=== PATIENT | male | born 1995 | race Caucasian/White ===

== ENCOUNTER 2021-10-30 04:32 | Inpatient (IN) | payer BC, MEDICAID ==
[~2021-10-30] VITALS: Ht 15.2 cm; Wt 109.1 kg
[2021-10-30] MEDS ORDERED: LATUDA40 MG PO (05:31)
[2021-10-30 05:54] LABS: ALBUMIN 3.4 gm/dL (3.5-5.0); CALCIUM 8.4 mg/dL (8.4-10.2); CREATININE, serum 0.73 mg/dL (0.72-1.25); POTASSIUM 3.2 mmol/L (3.5-4.5); TOTAL PROTEIN 6.5 gm/dL (6.2-8.1)
[2021-10-30 06:07] LABS: BILIRUBIN,TOTAL 1.8 mg/dL (0.2-1.2)
[2021-10-30 06:33] LABS: BASO # 0.1 K/mm3 (0.0-0.2); BASO % 0.8 % (0.0-2.0); EOS # 0.1 K/mm3 (0.0-0.7); EOS % 1.3 % (0.0-4.0); GRAN # 5.5 K/mm3 (1.4-6.5); GRAN % 73.5 % (42.2-75.2); HEMATOCRIT 38.7 % (42.0-52.0); HEMOGLOBIN 14.4 g/dl (13.5-18.0); LYMPH # 1.2 K/mm3 (1.2-3.4); LYMPH % 16.6 % (20.0-51.0); MEAN CELL VOLUME 90 fl (80.0-100.0); MEAN CORPUSCULAR HEMOGLOBIN 33 pg (27-31); MEAN CORPUSCULAR HGB CONC 37 g/dl (33.0-37.0); MEAN PLATELET VOLUME 9.6 fl (7.4-10.4); MONO # 0.6 K/mm3 (0.1-0.6); MONO % 7.5 % (1.7-9.3); PLATELET COUNT 263 K/mm3 (130-400); RED BLOOD COUNT 4.32 M/mm3 (4.20-5.60); REDCELL DISTRIBUTION WIDTH-CV 12.2 % (11.5-14.5)
[2021-10-30 11:49] VITALS: BP 134/86; PULSE 58; TEMP 97.5
[2021-10-30] MEDS ORDERED: ATARAX 25MG25 MG/TAB PO (11:51)
[2021-10-30 13:01] LABS: INR 1.2 (0.8-3.0); PROTHROMBIN TIME 13.4 SECONDS (9.7-12.8)
[2021-10-30 15:41] VITALS: BP 138/90; PULSE 94; TEMP 97.8
[2021-10-30 18:12] VITALS: BP 141/88; PULSE 85; TEMP 98.7
[2021-10-30 20:07] VITALS: BP 142/100; PULSE 57; TEMP 97.9
[2021-10-30 21:17] LABS: COLLECTION METHOD CLEAN CATCH
[2021-10-30 21:24] LABS: MUCOUS Present (NOT PRESENT); PH 6 (5-8); URINE APPEARANCE Hazy (CLEAR/HAZY); URINE BACTERIA None Seen /hpf (NONE SEEN); URINE BILIRUBIN Positive (NEGATIVE); URINE BLOOD Negative (NEGATIVE); URINE COLOR Amber (YELLOW); URINE GLUCOSE Negative (NEGATIVE); URINE KETONE Trace (NEGATIVE); URINE LEUKOCYTE ESTERASE Negative (NEGATIVE); URINE NITRATE Negative (NEGATIVE); URINE PROTEIN(semi-quant) 1+ (NEGATIVE); URINE RBC 0-2 /hpf (0-2)
[2021-10-30 21:45] LABS: TRICYCLIC ANTIDEPRESS URINE NEGATIVE
[2021-10-30 22:08] VITALS: BP 150/110; PULSE 90; TEMP 98.6
--- NOTE | 2021-10-30 23:34 | NUR ---
Patient assessed around 2039. Alert and oriented, and able to make needs known. Reports continuous pain to right upper quadrant of abdomen. Continues to recieve PRN Dilaudid 1 mg every 3 hours PRN for pain. Received around 2129. Patient continues on Detox protocol with Librium. Scored 4 around 1999 and 5 around 2199, given medication per orders. Peripheral IV to left forearm with IV fluids running per orders. Denies SOB and dyspnea. LS CTA. HRR. BSAx4. Complained of nausea and given PRN Zofran. No edema. Did report he was a smokers and felt like he was going through nicotene withdraw. Called [facility], and new order for Nicotiene patch recieved and put on per orders. Patient states that he wants to quit drinking. Had recently moved here from [place] and does not have [employer] insurance, and does not have a PCP. Asked if he would like social work msw to come talk to him about options, and stated he did. Order placed as requested. Voices no further questions, needs, or concerns at this time. In bed with call light within reach.
[2021-10-31] VITALS (12 sets, daily range): BP systolic 128–159; BP diastolic 84–118; PULSE 70–111; TEMP 97.6–99.2
--- NOTE | 2021-10-31 06:11 | NUR ---
Patient has been scoring 4-7 this shift on detox protocol, and has been recieving PRN Librium per orders. Has also recieved PRN Dilaudid every 3 hours for pain as requested. Reports pain has gotten better, no longer a 10, but around 6-8. Continues to have nausea. Did take medications with sips of water, and has been having ice chips. In bed with call light within reach. States that he just wants to eat, but reminded him that he is on bowel rest due to pancreatitis, and all of the nausea that he is having. Voiced understanding.
[2021-10-31 06:20] LABS: MEAN CELL VOLUME 94 fl (80.0-100.0); MEAN CORPUSCULAR HEMOGLOBIN 33 pg (27-31); MEAN CORPUSCULAR HGB CONC 36 g/dl (33.0-37.0); MEAN PLATELET VOLUME 9.9 fl (7.4-10.4); PLATELET COUNT 243 K/mm3 (130-400); RED BLOOD COUNT 4.49 M/mm3 (4.20-5.60); REDCELL DISTRIBUTION WIDTH-CV 12.7 % (11.5-14.5)
[2021-10-31 06:40] LABS: ALBUMIN 2.8 gm/dL (3.5-5.0); CALCIUM 8.2 mg/dL (8.4-10.2); CREATININE, serum 0.82 mg/dL (0.72-1.25); MAGNESIUM 1.4 mg/dL (1.6-2.6); POTASSIUM 4.2 mmol/L (3.5-4.5); TOTAL PROTEIN 5.8 gm/dL (6.2-8.1)
[2021-10-31 06:52] LABS: BILIRUBIN,TOTAL 5.5 mg/dL (0.2-1.2)
--- NOTE | 2021-10-31 10:48 | NUR ---
Initial visit; Patient thanked Assistant Softball Coach for looking in on him and offering Spiritual Care. Patient quiet but was receptive to having Assistant Softball Coach keep him in her prayers and asked that Assistant Softball Coach pray for him to stop drinking. Assistant Softball Coach stated it is important that he get help and stop before his health problems become irreversible. Assistant Softball Coach wished him success.
--- NOTE | 2021-10-31 11:52 | NUR ---
SUZE met with the patient to discuss discharge plan. The patient is from [place], [place]. He states that he moved to the area around July 12 to live with a friend and to help her out paying rent. He states that before being admitted he was about to close on a house in [place]. He states that this should be done on Wednesday. He plans to move into this home with his roommate/friend, Vandana Avila (ph#[phone]). He works at [employer] in [place] and reports independence with ADLs and does not use any DME. The patient does not have a PCP. He states that his insurance is a [facility] Medicaid and only pay for hospital visits, no primary care or follow up care. He is interested in applying for [place] Medicaid. SUZE consulted Financial Counselor, Kathie. SUZE inquired if the patient qualifies for insurance through his employer, [employer]. The patient states that after 3 months of employment at [employer], he would be able to qualify. SUZE discussed getting set up with primary care and informed him of the local clinics, [facility] and [facility] in [facility]. The patient would like to get set up at the [facility]. SUZE contacted [facility] and secured the patient and appointment on 11/11 at 1300. SUZE informed the community relations coordinator of the appointment. The patient does not have a DPOA-HC and he was not interested in completing one at this time. He states that he is not , does not have any children. His parents: Nevaeh (ph#[phone]) and Cuong are the patient's legal next of kin and the patient states that he is okay with this. They live in [place]. The patient plans to return home with his roommate upon discharge. SUZE addressed the patient's alcohol use. He states that he has been drinking daily. SUZE discussed treatment options. The patient states that he plans on quitting and is already going to AA meetings. He plans to continue AA meetings and was interested in a list of local resources. SUZE provided him with that list. He had no other concerns for SUZE at this time. *Discharge plan: home with roommate. The patient's orders will need to be faxed to [facility] at [phone]*
--- NOTE | 2021-10-31 12:42 | NUR ---
PATIENT CONTINUES TO HAVE HIGH AMOUNTS OF PAIN TO ABDOMEN. RUQ US COMPLETED. PATIENT REQUESTED TO BE ADVANCED TO CLEAR LIQUID DIET, PROVIDER REFUSED AT THIS TIME. WOULD LIKE PATIENT TO HAVE LONGER PERIOD OF GI REST DUE TO PAIN, NAUSEA, AND VOMITTING. PATIENT CONTINUES TO BE ON CIWA PROTOCOL EVERY 2 HOURS, SCORING 2-4. ELEVATED WBC COUNT REPORTED TO PROVIDER. PATIENT IS INDEPENDENT IN ROOM.
[2021-11-01] VITALS (7 sets, daily range): BP systolic 118–149; BP diastolic 80–105; PULSE 73–110; TEMP 98.3–101.1
--- NOTE | 2021-11-01 01:15 | NUR ---
Patient has recieved PRN Oxycodone once so far this shift for pain to abdomen. Continues on IV fluids per orders, as well as ABX. Patient recieving PRN Librium per detox protocol. Denies having any nausea, and no further emesis. In bed with call light within reach.
--- NOTE | 2021-11-01 06:41 | NUR ---
Recieved PRN Roxicodone as requested for pain during the night. Reports feeling much better. Denies having any nausea and vomitting throughout the night. Recieved PRN Librium per detox protocol during the night. IV fluids and ABX continue per orders. In bed with call light within reach.
[2021-11-01 08:34] LABS: BASO % 0.3 % (0.0-2.0); EOS # 0.2 K/mm3 (0.0-0.7); EOS % 1.7 % (0.0-4.0); GRAN # 8.5 K/mm3 (1.4-6.5); GRAN % 85.1 % (42.2-75.2); LYMPH # 0.8 K/mm3 (1.2-3.4); LYMPH % 8.4 % (20.0-51.0); MEAN CELL VOLUME 95 fl (80.0-100.0); MEAN CORPUSCULAR HGB CONC 36 g/dl (33.0-37.0); MEAN PLATELET VOLUME 10.1 fl (7.4-10.4); MONO # 0.4 K/mm3 (0.1-0.6); MONO % 4.1 % (1.7-9.3); PLATELET COUNT 145 K/mm3 (130-400); RED BLOOD COUNT 3.86 M/mm3 (4.20-5.60); REDCELL DISTRIBUTION WIDTH-CV 12.8 % (11.5-14.5)
[2021-11-01 08:50] LABS: HEMATOCRIT 36.6 % (42.0-52.0); MEAN CORPUSCULAR HEMOGLOBIN 34 pg (27-31)
[2021-11-01 08:54] LABS: CALCIUM 7.9 mg/dL (8.4-10.2); CREATININE, serum 0.67 mg/dL (0.72-1.25); POTASSIUM 3.9 mmol/L (3.5-4.5)
--- NOTE | 2021-11-02 00:51 | NUR ---
Patient reports pain is much better tonight. Has not needed any pain medication so far this shift. Tolerating general diet without nausea or vomiting. Did have indigestion, and given PRN medication as requested. Has recieved PRN Librium per detox protocol. Did spike temp of 101.1. Notified CHELSEA Peralta. New order for Motrin, and given per orders. Voices no questions, needs, or concerns at this time. In bed with call light within reach.
[2021-11-02 02:10] VITALS: BP 118/80; PULSE 85; TEMP 100.3
[2021-11-02 03:57] VITALS: BP 134/90; PULSE 87; TEMP 99.4
--- NOTE | 2021-11-02 06:34 | NUR ---
Patient has not have any complaints of pain or discomfort. Denies any vomitting. Recieved PRN Motrin for fever during the night, as well as Librium per detox protocol. Voices no questions, needs, or concerns at this time. In bed with call light within reach.
[2021-11-02 06:38] VITALS: BP 115/75; PULSE 85; TEMP 99.3
[2021-11-02 07:19] VITALS: BP 107/63; PULSE 79; TEMP 99.1
[2021-11-02 08:03] LABS: BASO # 0.1 K/mm3 (0.0-0.2); BASO % 0.6 % (0.0-2.0); EOS # 0.3 K/mm3 (0.0-0.7); GRAN # 6.5 K/mm3 (1.4-6.5); GRAN % 77.4 % (42.2-75.2); HEMOGLOBIN 11.9 g/dl (13.5-18.0); LYMPH # 0.9 K/mm3 (1.2-3.4); LYMPH % 10.1 % (20.0-51.0); MEAN CELL VOLUME 94 fl (80.0-100.0); MEAN CORPUSCULAR HEMOGLOBIN 33 pg (27-31); MEAN CORPUSCULAR HGB CONC 35 g/dl (33.0-37.0); MEAN PLATELET VOLUME 10.2 fl (7.4-10.4); MONO # 0.7 K/mm3 (0.1-0.6); MONO % 7.9 % (1.7-9.3); PLATELET COUNT 170 K/mm3 (130-400); RED BLOOD COUNT 3.57 M/mm3 (4.20-5.60); REDCELL DISTRIBUTION WIDTH-CV 12.8 % (11.5-14.5)
[2021-11-02 08:05] LABS: HEMATOCRIT 33.6 % (42.0-52.0)
[2021-11-02 08:20] LABS: CALCIUM 8.3 mg/dL (8.4-10.2); CREATININE, serum 0.66 mg/dL (0.72-1.25); POTASSIUM 3.8 mmol/L (3.5-4.5)
--- NOTE | 2021-11-02 09:16 | NUR ---
Pt doing well this morning with no complaints of pain. Discussed breakfast with him. He stated he was really hungry, asked if he had ordered anything and he stated no. Asked if he was aware that he could order anytime between 0630 and 7:00pm and he stated yes. I proceded to discuss with him about what he would like for breakfast and did order some for him. Pt is quiet with simple answers. No needs at this time, call light within reach
[2021-11-02 09:59] VITALS: BP 123/93; PULSE 81; TEMP 98.2
[2021-11-02 11:29] VITALS: BP 137/89; PULSE 84; TEMP 98.2
--- NOTE | 2021-11-02 12:44 | NUR ---
Reviewed discharge instructions with pt to include follow up appointment and prescription. Educated pt to notify nursing when his ride arrives. No needs verbalized, call light within reach
--- NOTE | 2021-11-02 15:24 | NUR ---
Pt has been sleeping off and on since discharge instructions. Earlier he stated he was trying to get ahold of a ride. Pt reports that his ride is on her way at this time. Notified him to let us know when she is here so that we can escort him out
--- NOTE | 2021-11-02 15:55 | NUR ---
Pt escorted out at this time
== END 2021-11-02 15:55 | disposition home or self-care (01) | DRG 439 ==
LOC: COL.ER 04:32 → MEDICAL 08:46
PROVIDERS: Emergency Medicine Emergency Medical Services; Student in an Organized Health Care Education/Training Program; ADMIT Family Medicine
DX: K85.20 Alcohol induced acute pancreatitis without necrosis or infection (principal); E87.1 Hypo-osmolality and hyponatremia; E87.8 Other disorders of electrolyte and fluid balance, not elsewhere classified; E87.6 Hypokalemia; F10.10 Alcohol abuse, uncomplicated; F41.9 Anxiety disorder, unspecified; F17.290 Nicotine dependence, other tobacco product, uncomplicated; F31.9 Bipolar disorder, unspecified; R73.9 Hyperglycemia, unspecified; K75.81 Nonalcoholic steatohepatitis (NASH); K70.9 Alcoholic liver disease, unspecified; D72.829 Elevated white blood cell count, unspecified; Z23 Encounter for immunization
CPT/HCPCS: 99223-AI; 99233-AI; 99239; J1170; J1650; J1885; J2270; J2405; J2543; J3010; J3411; J3475; J3480; J7030; Q9967